=== PATIENT | male | born 1970 | race Caucasian/White ===

== ENCOUNTER → 2016-12-20 | Outpatient (REF) | LOC: WSOH 13:29 | DX: Z02.4 Encounter for examination for driving license (principal) ==

== ENCOUNTER → 2016-12-29 | Outpatient (REF) | LOC: WSOH 14:31 | DX: Z01.30 Encounter for examination of blood pressure without abnormal findings (principal) ==

== ENCOUNTER 2019-04-07 10:50 | Outpatient (RCR) | payer OTHER | END 2019-04-11 10:08 | disposition home or self-care (01) | LOC: WSOH 10:50 | DX: S22.32XD Fracture of one rib, left side, subsequent encounter for fracture with routine healing (principal); S01.81XD Laceration without foreign body of other part of head, subsequent encounter; Y32.XXXD Crashing of motor vehicle, undetermined intent, subsequent encounter; E11.9 Type 2 diabetes mellitus without complications; I10 Essential (primary) hypertension; E07.9 Disorder of thyroid, unspecified; E78.00 Pure hypercholesterolemia, unspecified ==